=== PATIENT | female | born 1945 | race Caucasian/White ===

== ENCOUNTER 2020-03-02 12:45 | Outpatient (CLI) | payer MEDICARE ==
[~2020-03-02 12:45] MED LIST: Iopamidol 370 76% 100 ML VIAL ONE
--- NOTE | 2020-03-02 15:12 | CT ---
HISTORY: Peripheral vascular disease COMPARISON: None TECHNIQUE: Multiple contiguous axial images were obtained a CTA of the abdomen, pelvis, and bilateral lower extremities with contrast. Sagittal and coronal 3-D MIP reformats were performed. FINDINGS: Liver: Appropriate arterial phase enhancement. Gallbladder: Unremarkable. Kidneys: Symmetric arterial phase enhancement of the kidneys. There is dilatation of the right renal pelvis and/lower pole collecting system. No evidence of associated obstructing uropathy. Left kidney is diminutive with areas of scarring.. Adrenal glands: Unremarkable. Spleen: Unremarkable. Pancreas: There is nonspecific mild dilatation of the pancreatic duct, near the upper limits of flor l. There is fullness in the head of the pancreas. The possibility of a pancreatic neoplasm cannot be excluded.. Bowel: Limited evaluation of the alimentary canal by the lack of oral contrast. There are prominent d istal fluid-filled loops of small bowel. The proximal small bowel demonstrates mild mucosal thickening, nonspecific. Normal ileocecal junction. Normal caliber fluid-filled appendix. This fluid attenuation in the colon. Correlate for a low-grade colitis.. Reproductive organs :Surgically absent. Retroperitoneum: No lymphadenopathy Bones: Multilevel degenerative changes of the spine. There is leftward curvature of the lower lumbar spine and rightward curvature the upper lumbar spine Inferior thorax: Unremarkable. Abdominal aorta. Normal caliber without evidence of dissection or aneurysmal dilatation. There is doris ngation of the descending thoracic aorta. There is dilatation infrarenal abdominal aorta measuring 3.2 x 2.7 cm. There is minimal involving the mid infrarenal abdominal aorta measuring 2.9 x 2 point Celiac trunk: Patent SMA: Patent JESUS: Patent Renal arteries: Bilateral single renal arteries without significant atherosclerotic disease Bilateral common iliac arteries: Unremarkable. Internal iliac arteries: There is atherosclerosis involving the distal internal iliac arteries. External iliac arteries: Bilateral external iliac arteries are patent.. Common femoral arteries: Atherosclerosis without significant stenosis involving the right common femo ral artery. There is atherosclerosis with occlusion involving the distal left common femoral artery.. Profunda femoral arteries: Patent right profunda femoral artery. There is recanalization via collater als and patency of the left profundofemoral artery.. Superficial femoral arteries: Right femoral artery is patent. There is dilatation of the distal right femoral artery. The excluded lumen measures 2.2 x 2.7 cm. The enhancing portion of the artery measures 1.1 x 1.4 cm. There is complete occlusion of the distal left superficial femoral artery. The re is associated atherosclerotic plaque. There is dilatation of the included left superficial femoral artery and popliteal artery. Popliteal arteries: Patent right. Occluded left.. Right lower extremity: The proximal intervertebral artery, posterior tibial artery and peroneal arter ies are patent. There is likely single vessel supply to the right ankle the level of the anterior tibial artery. Left lower extremity: There is evidence of multifocal atherosclerotic disease. The arterial trifurcat ion is occluded proximally. Via collaterals, there is partial recanalization of the distal anterior tibial artery, posterior tibial artery and peroneal artery. IMPRESSION: Extensive atherosclerosis in evaluation of the lower extremity arterial system as described above.
== END 2020-03-02 12:46 | disposition home or self-care (01) ==
LOC: BICCT 12:45
PROVIDERS: ATTEND Thoracic Surgery (Cardiothoracic Vascular Surgery)
DX: I73.9 Peripheral vascular disease, unspecified (principal); I70.203 Unspecified atherosclerosis of native arteries of extremities, bilateral legs
CPT/HCPCS: 75635; 82565; Q9967